=== PATIENT | female | born 1950 | race African-American/Black ===

== ENCOUNTER 2020-08-25 00:42 | Emergency (ER) | payer OTHER, MEDICAID ==
[2020-08-25] MEDS ORDERED: Lorazepam 2 MG/ML VIAL ONE ×3 (00:55→01:21)
[2020-08-25] MEDS ORDERED: [UNRECOGNIZED DRUG - OTHER] ONE (01:16)
[2020-08-25] MEDS ORDERED: Propofol 1,000 MG/100 ML VIAL IV ONE ×2 (01:25→06:30)
[2020-08-25 01:50] LABS: #Eosinphils 0.1 10x3/uL (0.0-0.5); #Monocytes 0.3 10x3/uL (0.0-1.1); #Neutrophils 5.5 10x3/uL (1.5-8.4); %Basophils 0.1 % (0.0-2.0); %Eosinophils 1.7 % (0.0-6.0); %Lymphocytes 16.9 % (18.0-47.0); %Monocytes 3.8 % (0.0-10.0); %Neutrophils 77.2 % (40.0-75.0); Hemoglobin 12.9 g/dL (12.0-15.5); Mean Corpuscular Hemoglobin 27.3 pg (27.0-33.0); Mean Corpuscular Volume 87.9 fl (81.6-98.3); Mean Platelet Volume 12.2 fl (7.4-10.4); Platelet Count 132 10x3/uL (150-450); Red Blood Cell (RBC) Count 4.73 10x6/uL (3.90-5.03); White Blood Cell (WBC) Count 7.2 10x3/uL (3.5-10.5)
[2020-08-25 01:52] LABS: SARS-CoV-2 NAA Rapid Test Not Detected (NotDetected)
[2020-08-25 02:14] LABS: ALT (SGPT) 34 U/L (8-55); AST (SGOT) 34 U/L (5-34); Alkaline Phosphatase 158 U/L (40-110); Anion Gap 16 mmol/L (10-20); BUN (Urea Nitrogen) 28 mg/dL (9.8-20.1); Bilirubin, Total 0.3 mg/dL (0.2-1.2); Calc. Creatinine Clearance 0 mL/min (70-130); Calcium 9.6 mg/dL (7.8-10.44); Carbon Dioxide 25 mmol/L (23-31); Chloride 106 mmol/L (98-107); Globulin 4.4 g/dL (2.4-3.5); Glucose 90 mg/dL (80-115); Potassium 4.3 mmol/L (3.5-5.1); Protein, Total 8.4 g/dL (5.8-8.1); Sodium 143 mmol/L (136-145)
[2020-08-25] MEDS ORDERED: cefTRIAXone\\ROCEPHIN 2 GM VIAL ONE (02:59)
[2020-08-25 03:08] LABS: Base Excess (BEa) -1.8 mEq/L (-2.0 to +3.0); CO2 Tension 39.4 mmHg (35.0-45.0); Calcium, Ionized (arterial) 1.14 mmol/L (1.12-1.30); Carboxyhemoglobin (COHb) 0.4 gm% (0.0-3.0); Hemoglobin (Hb) 12.8 g/dL (12.0-16.0); O2 Tension (PaO2), arterial 116.7 mmHg (> 80.0); Potassium - ABG Lab 3.5 mmol/L (3.70-5.30); Puncture Site LRA; pH, Arterial 7.38 (7.35-7.45)
[2020-08-25] MEDS ORDERED: Fentanyl 100 MCG/2 ML VIAL ONE (03:55)
[2020-08-25] MEDS ORDERED: fentaNYL Citrate/PF 50 MCG/ML (20ML VIAL) ONE ×2 (04:21→04:30)
[2020-08-25] MEDS ORDERED: Rocuronium Bromide 10 MG/ML (10ML VIAL) ONE (08:00)
== END 2020-08-25 08:01 | disposition short-term general hospital (02) ==
LOC: CSHERS 00:42
DX: J96.91 Respiratory failure, unspecified with hypoxia (principal); G40.901 Epilepsy, unspecified, not intractable, with status epilepticus; E78.5 Hyperlipidemia, unspecified; F03.90 Unspecified dementia, unspecified severity, without behavioral disturbance, psychotic disturbance, mood disturbance, and anxiety; G47.00 Insomnia, unspecified; I10 Essential (primary) hypertension; K21.9 Gastro-esophageal reflux disease without esophagitis; Z20.822 Contact with and (suspected) exposure to COVID-19; Z86.73 Personal history of transient ischemic attack (TIA), and cerebral infarction without residual deficits; Z79.82 Long term (current) use of aspirin; Z79.899 Other long term (current) drug therapy
CPT/HCPCS: 31500; 36600; 36680; 51702; 70450; 71045; 80053; 82805; 83605; 84443; 84484; 85025; 87040; 87086; 87149; 93005; 94002; 94760; 96365; 96366; 96367; 96375; 96376; 99292; J0696; J1953; J2060; J2704; J3010; U0002

== ENCOUNTER 2020-09-30 16:24 | Inpatient (IN) | payer OTHER, MEDICAID ==
[2020-09-30 17:24] LABS: #Eosinphils 0.2 10x3/uL (0.0-0.5); #Monocytes 0.4 10x3/uL (0.0-1.1); %Basophils 0.1 % (0.0-2.0); %Eosinophils 2.2 % (0.0-6.0); %Lymphocytes 27.1 % (18.0-47.0); %Monocytes 5.1 % (0.0-10.0); %Neutrophils 65.2 % (40.0-75.0); Hemoglobin 9.4 g/dL (12.0-15.5); Mean Corpuscular HGB CONC 30.5 g/dL (32.0-36.0); Mean Corpuscular Hemoglobin 28.2 pg (27.0-33.0); Mean Corpuscular Volume 92.5 fl (81.6-98.3); Mean Platelet Volume 12.5 fl (7.4-10.4); Platelet Count 173 10x3/uL (150-450); RBC Distribution Width 15.6 % (11.5-14.5); Red Blood Cell (RBC) Count 3.33 10x6/uL (3.90-5.03); White Blood Cell (WBC) Count 7.7 10x3/uL (3.5-10.5)
[2020-09-30 17:38] LABS: ALT (SGPT) 16 U/L (8-55); AST (SGOT) 17 U/L (5-34); Albumin 3.5 g/dL (3.4-4.8); Alkaline Phosphatase 166 U/L (40-110); Anion Gap 16 mmol/L (10-20); BUN (Urea Nitrogen) 30 mg/dL (9.8-20.1); Bilirubin, Total 0.2 mg/dL (0.2-1.2); Calc. Creatinine Clearance 0 mL/min (70-130); Calcium 9.3 mg/dL (7.8-10.44); Carbon Dioxide 26 mmol/L (23-31); Chloride 104 mmol/L (98-107); Globulin 3.4 g/dL (2.4-3.5); Glucose 98 mg/dL (80-115); Potassium 4.5 mmol/L (3.5-5.1); Protein, Total 6.9 g/dL (5.8-8.1); Sodium 141 mmol/L (136-145)
[2020-09-30 18:02] LABS: PTT 23.9 sec (22.0-33.0); Prothrombin Time 11.3 sec (9.5-12.1)
[2020-09-30] MEDS ORDERED: Acetaminophen 325 MG TAB PO PRN (19:12)
[2020-09-30] MEDS ORDERED: Ondansetron PF 4 MG/2 ML Vial IVP PRN (19:12)
[2020-09-30] MEDS ORDERED: Sodium Chloride 0.9% 500 ML IV SCH (19:15)
[2020-09-30 19:59] LABS: Iron 27 ug/dL (50-170); Iron Binding Capacity, Total 321 mcg/dL (265-497)
[2020-09-30] MEDS ORDERED: Pantoprazole 40 MG VIAL ONE (21:06)
[2020-09-30 21:35] LABS: SARS-CoV-2 NAA Rapid Test Not Detected (NotDetected)
[2020-09-30 22:07] LABS: #Eosinphils 0.2 10x3/uL (0.0-0.5); #Monocytes 0.6 10x3/uL (0.0-1.1); #Neutrophils 5.8 10x3/uL (1.5-8.4); %Basophils 0.3 % (0.0-2.0); %Eosinophils 2.2 % (0.0-6.0); %Lymphocytes 24.7 % (18.0-47.0); %Monocytes 6.5 % (0.0-10.0); %Neutrophils 65.4 % (40.0-75.0); Hemoglobin 9.9 g/dL (12.0-15.5); Mean Corpuscular HGB CONC 31.9 g/dL (32.0-36.0); Mean Corpuscular Hemoglobin 28.3 pg (27.0-33.0); Mean Corpuscular Volume 88.6 fl (81.6-98.3); Mean Platelet Volume 13.5 fl (7.4-10.4); Platelet Count 148 10x3/uL (150-450); RBC Distribution Width 15.6 % (11.5-14.5); White Blood Cell (WBC) Count 8.9 10x3/uL (3.5-10.5)
[2020-09-30 22:56] VITALS: BMI 28.6
[2020-09-30] MEDS ORDERED: Scopolamine 1.5 mg/72 hour Patch TD SCH (23:59)
[2020-10-01] MEDS: Dextrose 5 %-0.45 % NaCl 1,000 ML IV SCH ×2 (00:18→12:13)
[2020-10-01] MEDS: levETIRAcetam 500 MG in Sodium Chloride 0.9% 100 ML IVPB SCH ×3 (00:18→21:17)
[2020-10-01 05:01] LABS: #Eosinphils 0.1 10x3/uL (0.0-0.5); #Monocytes 0.6 10x3/uL (0.0-1.1); #Neutrophils 6.7 10x3/uL (1.5-8.4); %Basophils 0.3 % (0.0-2.0); %Eosinophils 1.4 % (0.0-6.0); %Lymphocytes 22.1 % (18.0-47.0); %Monocytes 6.2 % (0.0-10.0); %Neutrophils 69.6 % (40.0-75.0); Hemoglobin 9.2 g/dL (12.0-15.5); Mean Corpuscular HGB CONC 31.4 g/dL (32.0-36.0); Mean Corpuscular Hemoglobin 28.6 pg (27.0-33.0); Mean Platelet Volume 12.8 fl (7.4-10.4); Platelet Count 184 10x3/uL (150-450); RBC Distribution Width 15.6 % (11.5-14.5); Red Blood Cell (RBC) Count 3.22 10x6/uL (3.90-5.03); White Blood Cell (WBC) Count 9.6 10x3/uL (3.5-10.5)
[2020-10-01 05:03] LABS: Anion Gap 13 mmol/L (10-20); BUN (Urea Nitrogen) 27 mg/dL (9.8-20.1); Calc. Creatinine Clearance 69 mL/min (70-130); Calcium 9.3 mg/dL (7.8-10.44); Carbon Dioxide 27 mmol/L (23-31); Chloride 106 mmol/L (98-107); Glucose 105 mg/dL (80-115); Potassium 3.9 mmol/L (3.5-5.1); Sodium 142 mmol/L (136-145)
[2020-10-01] MEDS: Pantoprazole 80 MG in Sodium Chloride 0.9% 100 ML IVPB SCH ×2 (09:28→18:48)
[2020-10-01 10:13] LABS: #Eosinphils 0.2 10x3/uL (0.0-0.5); #Monocytes 0.5 10x3/uL (0.0-1.1); #Neutrophils 5.7 10x3/uL (1.5-8.4); %Basophils 0.4 % (0.0-2.0); %Eosinophils 1.9 % (0.0-6.0); %Lymphocytes 19.5 % (18.0-47.0); %Monocytes 5.8 % (0.0-10.0); %Neutrophils 72.1 % (40.0-75.0); Hemoglobin 8.7 g/dL (12.0-15.5); Mean Corpuscular HGB CONC 30.5 g/dL (32.0-36.0); Mean Corpuscular Hemoglobin 28.3 pg (27.0-33.0); Mean Corpuscular Volume 92.8 fl (81.6-98.3); Mean Platelet Volume 12.4 fl (7.4-10.4); Platelet Count 155 10x3/uL (150-450); RBC Distribution Width 15.7 % (11.5-14.5); Red Blood Cell (RBC) Count 3.07 10x6/uL (3.90-5.03); White Blood Cell (WBC) Count 7.9 10x3/uL (3.5-10.5)
[2020-10-01 21:53] LABS: #Eosinphils 0.2 10x3/uL (0.0-0.5); #Monocytes 0.5 10x3/uL (0.0-1.1); #Neutrophils 6.3 10x3/uL (1.5-8.4); %Basophils 0.2 % (0.0-2.0); %Eosinophils 2.3 % (0.0-6.0); %Lymphocytes 20.5 % (18.0-47.0); %Monocytes 5.2 % (0.0-10.0); %Neutrophils 71.6 % (40.0-75.0); Hemoglobin 8.3 g/dL (12.0-15.5); Mean Corpuscular HGB CONC 31.1 g/dL (32.0-36.0); Mean Corpuscular Hemoglobin 28.7 pg (27.0-33.0); Mean Corpuscular Volume 92.4 fl (81.6-98.3); Mean Platelet Volume 12.3 fl (7.4-10.4); Platelet Count 166 10x3/uL (150-450); RBC Distribution Width 15.4 % (11.5-14.5); Red Blood Cell (RBC) Count 2.89 10x6/uL (3.90-5.03); White Blood Cell (WBC) Count 8.8 10x3/uL (3.5-10.5)
[2020-10-01] MEDS ORDERED: Morphine 4 MG/ML VIAL SLOW IVP SCH (23:59)
[2020-10-02] MEDS ORDERED: Morphine 2 MG/ML VIAL SLOW IVP SCH (00:30)
[2020-10-02] MEDS: Dextrose 5 %-0.45 % NaCl 1,000 ML IV SCH ×3 (00:46→20:54)
[2020-10-02] MEDS ORDERED: Morphine 4 MG/ML VIAL SLOW IVP PRN (05:05)
[2020-10-02 05:15] LABS: #Eosinphils 0.4 10x3/uL (0.0-0.5); #Monocytes 0.5 10x3/uL (0.0-1.1); #Neutrophils 5.7 10x3/uL (1.5-8.4); %Basophils 0.2 % (0.0-2.0); %Eosinophils 4.3 % (0.0-6.0); %Lymphocytes 20.9 % (18.0-47.0); %Monocytes 5.9 % (0.0-10.0); %Neutrophils 68.5 % (40.0-75.0); Hemoglobin 8.4 g/dL (12.0-15.5); Mean Corpuscular HGB CONC 30.7 g/dL (32.0-36.0); Mean Corpuscular Hemoglobin 28.4 pg (27.0-33.0); Mean Corpuscular Volume 92.6 fl (81.6-98.3); Platelet Count 156 10x3/uL (150-450); RBC Distribution Width 15.4 % (11.5-14.5); Red Blood Cell (RBC) Count 2.96 10x6/uL (3.90-5.03); White Blood Cell (WBC) Count 8.3 10x3/uL (3.5-10.5)
[2020-10-02 05:16] LABS: Anion Gap 13 mmol/L (10-20); BUN (Urea Nitrogen) 17 mg/dL (9.8-20.1); Calc. Creatinine Clearance 77 mL/min (70-130); Calcium 9.1 mg/dL (7.8-10.44); Carbon Dioxide 23 mmol/L (23-31); Chloride 110 mmol/L (98-107); Glucose 105 mg/dL (80-115); Potassium 3.7 mmol/L (3.5-5.1); Sodium 142 mmol/L (136-145)
[2020-10-02] MEDS: Morphine 2 MG/ML VIAL SLOW IVP PRN ×3 (05:16→23:41)
[2020-10-02] MEDS: levETIRAcetam 500 MG in Sodium Chloride 0.9% 100 ML IVPB SCH ×2 (08:39→20:59)
[2020-10-02] MEDS ORDERED: PROPOFOL 20 ML ONE (16:50)
[2020-10-03 07:46] VITALS: TEMP 99.1
[2020-10-03] MEDS: levETIRAcetam 500 MG in Sodium Chloride 0.9% 100 ML IVPB SCH (07:58)
[2020-10-03] MEDS ORDERED: Pantoprazole 40 MG GRANULES PACKET PER TUBE SCH ×2 (09:00)
[2020-10-03 11:45] VITALS: BP 109/66
== END 2020-10-03 15:17 | DRG 378 ==
LOC: CSHERS 16:24 → CSHIMCU 19:12 → CSHTELE 10-01 19:51
PROVIDERS: ADMIT Student in an Organized Health Care Education/Training Program; ATTEND Family Medicine
PROC: 02HV33Z Insertion of Infusion Device into Superior Vena Cava, Percutaneous Approach (ICD-10-PCS; 2020-09-30)
PROC: 0DP68UZ Removal of Feeding Device from Stomach, Via Natural or Artificial Opening Endoscopic (ICD-10-PCS; principal; 2020-10-02)
PROC: 0DH63UZ Insertion of Feeding Device into Stomach, Percutaneous Approach (ICD-10-PCS; 2020-10-02)
DX: K92.2 Gastrointestinal hemorrhage, unspecified (principal); D62 Acute posthemorrhagic anemia; K94.23 Gastrostomy malfunction; K44.9 Diaphragmatic hernia without obstruction or gangrene; Z20.822 Contact with and (suspected) exposure to COVID-19; K20.90 Esophagitis, unspecified without bleeding; Z86.73 Personal history of transient ischemic attack (TIA), and cerebral infarction without residual deficits; M24.50 Contracture, unspecified joint; E78.5 Hyperlipidemia, unspecified; G40.909 Epilepsy, unspecified, not intractable, without status epilepticus; I12.9 Hypertensive chronic kidney disease with stage 1 through stage 4 chronic kidney disease, or unspecified chronic kidney disease; N18.2 Chronic kidney disease, stage 2 (mild); I48.0 Paroxysmal atrial fibrillation; K21.9 Gastro-esophageal reflux disease without esophagitis; R39.2 Extrarenal uremia; Z74.01 Bed confinement status; Z79.01 Long term (current) use of anticoagulants; Z79.82 Long term (current) use of aspirin; Z79.899 Other long term (current) drug therapy
CPT/HCPCS: 0240U; 36415; 36416; 71045; 80048; 80053; 82274; 82728; 83540; 83550; 85025; 85610; 85730; 86850; 86900; 86901; 93005; 93010; 94760; C9113; J1953; J2270; J2704; J3490; J7042

== ENCOUNTER 2021-03-24 11:30 | Emergency (ER) | payer OTHER, MEDICAID | END 2021-03-24 14:19 | disposition home or self-care (01) | LOC: CSHERS 11:30 | DX: I10 Essential (primary) hypertension (principal); E78.5 Hyperlipidemia, unspecified; K21.9 Gastro-esophageal reflux disease without esophagitis; F03.90 Unspecified dementia, unspecified severity, without behavioral disturbance, psychotic disturbance, mood disturbance, and anxiety; G47.00 Insomnia, unspecified; Z86.73 Personal history of transient ischemic attack (TIA), and cerebral infarction without residual deficits | CPT/HCPCS: 74018 ==

== ENCOUNTER 2021-03-31 08:56 | Emergency (ER) | payer OTHER | END 2021-03-31 13:15 | disposition home or self-care (01) | LOC: CSHERS 08:56 | DX: K94.23 Gastrostomy malfunction (principal); E78.5 Hyperlipidemia, unspecified; F03.90 Unspecified dementia, unspecified severity, without behavioral disturbance, psychotic disturbance, mood disturbance, and anxiety; G47.00 Insomnia, unspecified; I10 Essential (primary) hypertension; K21.9 Gastro-esophageal reflux disease without esophagitis; Z86.73 Personal history of transient ischemic attack (TIA), and cerebral infarction without residual deficits | CPT/HCPCS: 43762 ==

== ENCOUNTER 2021-04-22 18:21 | Emergency (ER) | payer OTHER | END 2021-04-22 22:12 | LOC: CSHERS 18:21 | DX: S72.341A Displaced spiral fracture of shaft of right femur, initial encounter for closed fracture (principal); I10 Essential (primary) hypertension; Z86.73 Personal history of transient ischemic attack (TIA), and cerebral infarction without residual deficits; K21.9 Gastro-esophageal reflux disease without esophagitis; E78.5 Hyperlipidemia, unspecified ==

== ENCOUNTER 2021-06-09 03:52 | Emergency (ER) | payer OTHER | END 2021-06-09 04:08 | LOC: CSHERS 03:52 | DX: K94.23 Gastrostomy malfunction (principal); I10 Essential (primary) hypertension; Z86.73 Personal history of transient ischemic attack (TIA), and cerebral infarction without residual deficits; E78.5 Hyperlipidemia, unspecified; K21.9 Gastro-esophageal reflux disease without esophagitis | CPT/HCPCS: 43762; 74018 ==

== ENCOUNTER 2021-11-07 08:53 | Emergency (ER) | payer OTHER ==
[2021-11-07] MEDS ORDERED: Iopamidol 300 61% 100 ML VIAL FS ONE (10:37)
[2021-11-07 10:39] LABS: #Eosinphils 0.3 10x3/uL (0.0-0.5); #Monocytes 0.5 10x3/uL (0.0-1.1); #Neutrophils 6.9 10x3/uL (1.5-8.4); %Basophils 0.3 % (0.0-2.0); %Eosinophils 2.4 % (0.0-6.0); %Lymphocytes 25.1 % (18.0-47.0); %Monocytes 5.1 % (0.0-10.0); %Neutrophils 66.7 % (40.0-75.0); Hemoglobin 12.8 g/dL (12.0-15.5); Mean Corpuscular HGB CONC 32.3 g/dL (32.0-36.0); Mean Corpuscular Hemoglobin 27.9 pg (27.0-33.0); Mean Corpuscular Volume 86.3 fl (81.6-98.3); Mean Platelet Volume 11.7 fl (7.4-10.4); Platelet Count 156 10x3/uL (150-450); RBC Distribution Width 16.2 % (11.5-14.5); Red Blood Cell (RBC) Count 4.59 10x6/uL (3.90-5.03); White Blood Cell (WBC) Count 10.3 10x3/uL (3.5-10.5)
[2021-11-07 10:55] LABS: ALT (SGPT) 20 U/L (8-55); AST (SGOT) 18 U/L (5-34); Albumin 3.7 g/dL (3.4-4.8); Alkaline Phosphatase 146 U/L (40-110); Anion Gap 14 mmol/L (10-20); BUN (Urea Nitrogen) 30 mg/dL (9.8-20.1); Bilirubin, Total 0.4 mg/dL (0.2-1.2); Calc. Creatinine Clearance 0 mL/min (70-130); Calcium 9.7 mg/dL (7.8-10.44); Carbon Dioxide 30 mmol/L (23-31); Chloride 99 mmol/L (98-107); Globulin 3.7 g/dL (2.4-3.5); Glucose 103 mg/dL (80-115); Lipase 29 U/L (8-78); Magnesium 1.9 mg/dL (1.6-2.6); Potassium 3.9 mmol/L (3.5-5.1); Protein, Total 7.4 g/dL (5.8-8.1); Sodium 139 mmol/L (136-145)
[2021-11-07 11:20] LABS: Bilirubin Neg (Negative); Blood, Urine Negative (Negative); Clarity Clear (Clear); Glucose, Urine (Dipstick) Normal (Negative); Ketone, Urine Negative (Negative); Leukocyte Negative (Negative); Nitrite Negative (Negative); Protein, Urine (Dipstick) 15 mg/dl (Neg-Trace); Specific Gravity, Urine 1.015 (1.002-1.036)
[2021-11-07] MEDS ORDERED: Ondansetron PF 4 MG/2 ML Vial ONE (12:09)
== END 2021-11-07 14:40 | disposition home or self-care (01) ==
LOC: CSHERS 08:53
DX: K52.9 Noninfective gastroenteritis and colitis, unspecified (principal); I10 Essential (primary) hypertension; E78.5 Hyperlipidemia, unspecified; K21.9 Gastro-esophageal reflux disease without esophagitis; G47.00 Insomnia, unspecified; Z86.73 Personal history of transient ischemic attack (TIA), and cerebral infarction without residual deficits
CPT/HCPCS: 36415; 51701; 71045; 74177; 80053; 81003; 83690; 83735; 84484; 85025; 87086; 93005; 96361; 96374; J2405; Q9967

== ENCOUNTER 2021-12-24 20:34 | Emergency (ER) | payer OTHER ==
[2021-12-24 21:08] LABS: #Eosinphils 0.1 10x3/uL (0.0-0.5); #Monocytes 0.4 10x3/uL (0.0-1.1); #Neutrophils 6.8 10x3/uL (1.5-8.4); %Basophils 0.2 % (0.0-2.0); %Eosinophils 0.7 % (0.0-6.0); %Lymphocytes 15.8 % (18.0-47.0); %Monocytes 4.1 % (0.0-10.0); %Neutrophils 79.1 % (40.0-75.0); Hemoglobin 13.7 g/dL (12.0-15.5); Mean Corpuscular HGB CONC 32.5 g/dL (32.0-36.0); Mean Corpuscular Hemoglobin 28.1 pg (27.0-33.0); Mean Corpuscular Volume 86.7 fl (81.6-98.3); Mean Platelet Volume 11.8 fl (7.4-10.4); Platelet Count 143 10x3/uL (150-450); RBC Distribution Width 14.4 % (11.5-14.5); Red Blood Cell (RBC) Count 4.87 10x6/uL (3.90-5.03); White Blood Cell (WBC) Count 8.6 10x3/uL (3.5-10.5)
[2021-12-24 21:26] LABS: ALT (SGPT) 24 U/L (8-55); AST (SGOT) 22 U/L (5-34); Albumin 4.1 g/dL (3.4-4.8); Alkaline Phosphatase 159 U/L (40-110); Anion Gap 15 mmol/L (10-20); BUN (Urea Nitrogen) 32 mg/dL (9.8-20.1); Bilirubin, Total 0.4 mg/dL (0.2-1.2); Calc. Creatinine Clearance 0 mL/min (70-130); Calcium 10.5 mg/dL (7.8-10.44); Carbon Dioxide 28 mmol/L (23-31); Chloride 103 mmol/L (98-107); Estimated GFR 86; Glucose 111 mg/dL (80-115); Potassium 3.8 mmol/L (3.5-5.1); Protein, Total 8.1 g/dL (5.8-8.1); Sodium 142 mmol/L (136-145)
== END 2021-12-24 23:09 | disposition home or self-care (01) ==
LOC: CSHERS 20:34
DX: R11.10 Vomiting, unspecified (principal); I10 Essential (primary) hypertension; E78.5 Hyperlipidemia, unspecified; K21.9 Gastro-esophageal reflux disease without esophagitis; Z79.899 Other long term (current) drug therapy
CPT/HCPCS: 36415; 80053; 82274; 85025; 99284

== ENCOUNTER 2022-05-14 20:19 | Emergency (ER) | payer OTHER | END 2022-05-14 21:13 | LOC: CSHERS 20:19 | DX: K94.23 Gastrostomy malfunction (principal); I10 Essential (primary) hypertension; E78.5 Hyperlipidemia, unspecified; K21.9 Gastro-esophageal reflux disease without esophagitis | CPT/HCPCS: 43762; 74018 ==

== ENCOUNTER 2022-05-16 01:56 | Observation (INO) | payer OTHER ==
[2022-05-16 02:39] LABS: #Eosinphils 0.1 10x3/uL (0.0-0.5); #Monocytes 0.3 10x3/uL (0.0-1.1); #Neutrophils 6.5 10x3/uL (1.5-8.4); %Basophils 0.4 % (0.0-2.0); %Eosinophils 0.9 % (0.0-6.0); %Lymphocytes 13.7 % (18.0-47.0); %Monocytes 3.6 % (0.0-10.0); %Neutrophils 81.1 % (40.0-75.0); Hemoglobin 12.8 g/dL (12.0-15.5); Mean Corpuscular Hemoglobin 28.3 pg (27.0-33.0); Mean Corpuscular Volume 88.3 fl (81.6-98.3); Mean Platelet Volume 12.1 fl (7.4-10.4); Platelet Count 141 10x3/uL (150-450); RBC Distribution Width 15.1 % (11.5-14.5); Red Blood Cell (RBC) Count 4.53 10x6/uL (3.90-5.03)
[2022-05-16 02:57] LABS: ALT (SGPT) 13 U/L (8-55); AST (SGOT) 20 U/L (5-34); Albumin 3.9 g/dL (3.4-4.8); Alkaline Phosphatase 154 U/L (40-110); Anion Gap 15 mmol/L (10-20); BUN (Urea Nitrogen) 24 mg/dL (9.8-20.1); Bilirubin, Total 0.4 mg/dL (0.2-1.2); Calc. Creatinine Clearance 0 mL/min (70-130); Calcium 9.8 mg/dL (7.8-10.44); Carbon Dioxide 24 mmol/L (23-31); Chloride 108 mmol/L (98-107); Estimated GFR 83; Globulin 3.9 g/dL (2.4-3.5); Glucose 92 mg/dL (80-115); Lipase 19 U/L (8-78); Magnesium 1.9 mg/dL (1.6-2.6); Potassium 3.6 mmol/L (3.5-5.1); Protein, Total 7.8 g/dL (5.8-8.1); Sodium 143 mmol/L (136-145)
[2022-05-16] MEDS ORDERED: Lorazepam 2 MG/ML VIAL ONE (04:12)
[2022-05-16] MEDS ORDERED: levETIRAcetam 2,000 MG in Sodium Chloride 0.9% 100 ML IVPB SCH (04:30)
[2022-05-16 05:37] LABS: SARS-CoV-2 NAA Rapid Test DETECTED (NotDetected)
[2022-05-16] MEDS ORDERED: Lorazepam 2 MG/ML VIAL SLOW IVP PRN ×2 (06:32→08:12)
[2022-05-16] MEDS ORDERED: Dextrose 50% Abboject 50 ML SYRINGE SLOW IVP PRN (06:41)
[2022-05-16] MEDS ORDERED: Dextrose 5% in Water 1,000 ML IV PRN (06:41)
[2022-05-16] MEDS ORDERED: HumaLOG 300 UNITS/3 ML VIAL SC PRN (06:41)
[2022-05-16] MEDS ORDERED: Ondansetron ODT 4 MG TAB PER TUBE PRN (07:04)
[2022-05-16 07:48] VITALS: BMI 26.5
[2022-05-16] MEDS ORDERED: CHOLECALCIFEROL 250 MCG PER TUBE SCH (09:00)
[2022-05-16] MEDS: Enoxaparin Sodium 40 MG/0.4 ML SYRINGE SC SCH (09:29)
[2022-05-16] MEDS: Dexamethasone 4 mg/ml Vial SLOW IVP SCH (09:29)
[2022-05-16] MEDS: Multivitamin W/ Minerals 1 TAB PER TUBE SCH (09:29)
[2022-05-16] MEDS: Aspirin Chewable 81 MG TAB PER TUBE SCH (09:29)
[2022-05-16] MEDS: Sertraline 100 MG TAB PER TUBE SCH (09:29)
[2022-05-16] MEDS: Cholecalciferol 1,000 UNITS (25 MCG) TAB PER TUBE SCH (09:30)
[2022-05-16] MEDS: Lansoprazole 3 MG/ML ORAL SUSPENSION PER TUBE SCH (09:30)
[2022-05-16] MEDS: Ascorbic Acid 500 mg Chewable Tablet PER TUBE SCH (09:30)
[2022-05-16] MEDS: Saccharomyces boulardii 250 MG CAP PER TUBE SCH ×3 (09:30→22:31)
[2022-05-16] MEDS: Zinc Sulfate 220 MG CAP PER TUBE SCH (09:30)
[2022-05-16] MEDS: levETIRAcetam 500 MG TAB PER TUBE SCH ×2 (09:30→22:31)
[2022-05-16] MEDS: Polyethylene Glycol 3350 17 GM Packet PER TUBE SCH (10:07)
[2022-05-16] MEDS: Ipratropium Bromide 2.5 ml Neb NEB SCH ×4 (15:00→20:45)
[2022-05-16] MEDS: Melatonin 3 MG TAB PER TUBE SCH (22:32)
[2022-05-17 05:58] LABS: Anion Gap 12 mmol/L (10-20); BUN (Urea Nitrogen) 26 mg/dL (9.8-20.1); CRP (Inflammatory) 3.27 mg/dL (= or < 0.5); Calc. Creatinine Clearance 82 mL/min (70-130); Calcium 9.6 mg/dL (7.8-10.44); Carbon Dioxide 27 mmol/L (23-31); Chloride 111 mmol/L (98-107); Estimated GFR 91; Glucose 78 mg/dL (80-115); Potassium 3.7 mmol/L (3.5-5.1); Sodium 146 mmol/L (136-145)
[2022-05-17 06:18] LABS: #Eosinphils 0.1 10x3/uL (0.0-0.5); #Monocytes 0.5 10x3/uL (0.0-1.1); #Neutrophils 3.8 10x3/uL (1.5-8.4); %Basophils 0.5 % (0.0-2.0); %Eosinophils 1.8 % (0.0-6.0); %Lymphocytes 26.2 % (18.0-47.0); %Monocytes 7.6 % (0.0-10.0); %Neutrophils 63.7 % (40.0-75.0); Hemoglobin 12.3 g/dL (12.0-15.5); Mean Corpuscular HGB CONC 31.5 g/dL (32.0-36.0); Mean Corpuscular Hemoglobin 28.3 pg (27.0-33.0); Mean Corpuscular Volume 89.9 fl (81.6-98.3); Mean Platelet Volume 12.4 fl (7.4-10.4); Platelet Count 126 10x3/uL (150-450); RBC Distribution Width 15.2 % (11.5-14.5); Red Blood Cell (RBC) Count 4.34 10x6/uL (3.90-5.03)
[2022-05-17] MEDS: Ipratropium Bromide 2.5 ml Neb NEB SCH ×3 (08:36→19:49)
[2022-05-17] MEDS: Polyethylene Glycol 3350 17 GM Packet PER TUBE SCH (08:51)
[2022-05-17] MEDS: Dexamethasone 4 mg/ml Vial SLOW IVP SCH (08:53)
[2022-05-17] MEDS: Aspirin Chewable 81 MG TAB PER TUBE SCH (08:54)
[2022-05-17] MEDS: Sertraline 100 MG TAB PER TUBE SCH (08:54)
[2022-05-17] MEDS: Enoxaparin Sodium 40 MG/0.4 ML SYRINGE SC SCH (08:54)
[2022-05-17] MEDS: Saccharomyces boulardii 250 MG CAP PER TUBE SCH ×3 (08:55→22:29)
[2022-05-17] MEDS: Ascorbic Acid 500 mg Chewable Tablet PER TUBE SCH (08:55)
[2022-05-17] MEDS: Multivitamin W/ Minerals 1 TAB PER TUBE SCH (08:55)
[2022-05-17] MEDS: levETIRAcetam 500 MG TAB PER TUBE SCH ×2 (08:55→22:29)
[2022-05-17] MEDS: Cholecalciferol 1,000 UNITS (25 MCG) TAB PER TUBE SCH (08:56)
[2022-05-17] MEDS: Lansoprazole 3 MG/ML ORAL SUSPENSION PER TUBE SCH (09:00)
[2022-05-17] MEDS: Zinc Sulfate 220 MG CAP PER TUBE SCH (11:21)
[2022-05-17] MEDS: Melatonin 3 MG TAB PER TUBE SCH (22:29)
[2022-05-18] MEDS: Ipratropium Bromide 2.5 ml Neb NEB SCH ×3 (07:30→11:44)
[2022-05-18] MEDS: Dexamethasone 4 mg/ml Vial SLOW IVP SCH (10:52)
[2022-05-18] MEDS: levETIRAcetam 500 MG TAB PER TUBE SCH (10:52)
[2022-05-18] MEDS: Zinc Sulfate 220 MG CAP PER TUBE SCH (10:52)
[2022-05-18] MEDS: Saccharomyces boulardii 250 MG CAP PER TUBE SCH ×2 (10:53→15:48)
[2022-05-18] MEDS: Sertraline 100 MG TAB PER TUBE SCH (10:53)
[2022-05-18] MEDS: Ascorbic Acid 500 mg Chewable Tablet PER TUBE SCH (10:53)
[2022-05-18] MEDS: Aspirin Chewable 81 MG TAB PER TUBE SCH (10:53)
[2022-05-18] MEDS: Cholecalciferol 1,000 UNITS (25 MCG) TAB PER TUBE SCH (10:54)
[2022-05-18] MEDS: Multivitamin W/ Minerals 1 TAB PER TUBE SCH (10:54)
[2022-05-18] MEDS: Polyethylene Glycol 3350 17 GM Packet PER TUBE SCH (10:54)
[2022-05-18] MEDS: Enoxaparin Sodium 40 MG/0.4 ML SYRINGE SC SCH (10:54)
[2022-05-18] MEDS: Lansoprazole 3 MG/ML ORAL SUSPENSION PER TUBE SCH (11:16)
[2022-05-18 12:30] VITALS: BP 133/73; TEMP 98
[2022-05-18] MEDS ORDERED: Ipratropium Oral Inhaler INH SCH (15:00)
== END 2022-05-18 04:30 ==
LOC: CSHERS 01:56 → CSHTELE 06:31 → INTOOBSV 06:31
PROVIDERS: ADMIT Family Medicine; ATTEND Internal Medicine
DX: U07.1 COVID-19 (principal); J96.01 Acute respiratory failure with hypoxia; M24.50 Contracture, unspecified joint; G93.41 Metabolic encephalopathy; G40.909 Epilepsy, unspecified, not intractable, without status epilepticus; I10 Essential (primary) hypertension; Z93.1 Gastrostomy status; E78.5 Hyperlipidemia, unspecified; Z79.82 Long term (current) use of aspirin; Z79.899 Other long term (current) drug therapy
CPT/HCPCS: 70490; 71045; 74176; 80048; 80053; 82962 ×3; 83605; 83690; 83735; 85025 ×2; 86140; 93005; 94640 ×2; 94760 ×3; 96365; 96375; 99285; J1953; U0002; 36415; 36416; 96372; 96376; G0378; J1100; J1650; J2060; J3490

== ENCOUNTER 2022-08-19 14:00 | Observation (INO) | payer OTHER, MEDICAID ==
[2022-08-19 14:57] LABS: #Eosinphils 0.2 10x3/uL (0.0-0.5); #Monocytes 0.3 10x3/uL (0.0-1.1); #Neutrophils 7.6 10x3/uL (1.5-8.4); %Basophils 0.3 % (0.0-2.0); %Eosinophils 2.1 % (0.0-6.0); %Lymphocytes 9.5 % (18.0-47.0); %Monocytes 3.5 % (0.0-10.0); %Neutrophils 84.3 % (40.0-75.0); Hemoglobin 12.6 g/dL (12.0-15.5); Mean Corpuscular HGB CONC 30.4 g/dL (32.0-36.0); Mean Corpuscular Hemoglobin 28.6 pg (27.0-33.0); Mean Corpuscular Volume 93.9 fl (81.6-98.3); Mean Platelet Volume 12.2 fl (7.4-10.4); Platelet Count 126 10x3/uL (150-450); Red Blood Cell (RBC) Count 4.41 10x6/uL (3.90-5.03)
[2022-08-19 15:23] LABS: ALT (SGPT) 16 U/L (8-55); AST (SGOT) 24 U/L (5-34); Albumin 3.6 g/dL (3.4-4.8); Alkaline Phosphatase 126 U/L (40-110); Anion Gap 15 mmol/L (10-20); BUN (Urea Nitrogen) 26 mg/dL (9.8-20.1); Bilirubin, Total 0.2 mg/dL (0.2-1.2); Calc. Creatinine Clearance 0 mL/min (70-130); Calcium 9.4 mg/dL (7.8-10.44); Carbon Dioxide 26 mmol/L (23-31); Chloride 107 mmol/L (98-107); Estimated GFR 82; Globulin 3.4 g/dL (2.4-3.5); Glucose 107 mg/dL (80-115); Potassium 4.3 mmol/L (3.5-5.1); Sodium 144 mmol/L (136-145)
[2022-08-19 15:36] LABS: CKMB 1.4 ng/mL (0-6.6)
[2022-08-19 15:40] LABS: SARS-CoV-2 NAA Rapid Test Not Detected (NotDetected)
[2022-08-19 16:59] LABS: Troponin I 0.146 ng/mL (< 0.028)
[2022-08-19] MEDS ORDERED: Aspirin 325 MG TAB ONE (19:20)
[2022-08-19] MEDS ORDERED: Melatonin 3 MG TAB PER TUBE PRN (19:36)
[2022-08-19 22:50] VITALS: BMI 25.9
[2022-08-19] MEDS ORDERED: Sodium Chloride 0.9% 1,000 ML IV SCH (23:30)
[2022-08-19] MEDS ORDERED: Aspirin Chewable 81 MG TAB PER TUBE SCH (23:30)
[2022-08-19] MEDS ORDERED: Saccharomyces boulardii 250 MG CAP PER TUBE SCH (23:45)
[2022-08-19] MEDS ORDERED: levETIRAcetam 500 mg/5 ml Oral Solution PER TUBE SCH (23:45)
[2022-08-19 23:48] LABS: Troponin I 0.265 ng/mL (< 0.028)
[2022-08-20] MEDS ORDERED: Ipratropium Bromide 2.5 ml Neb NEB PRN (01:00)
[2022-08-20] MEDS ORDERED: Hyoscyamine SL 0.125 MG TAB PER TUBE SCH (01:15)
[2022-08-20 06:04] LABS: PTT 29.6 sec (22.0-33.0)
[2022-08-20 06:05] LABS: #Eosinphils 0.2 10x3/uL (0.0-0.5); #Monocytes 0.5 10x3/uL (0.0-1.1); #Neutrophils 4.3 10x3/uL (1.5-8.4); %Basophils 0.4 % (0.0-2.0); %Eosinophils 2.7 % (0.0-6.0); %Lymphocytes 28.9 % (18.0-47.0); %Monocytes 6.8 % (0.0-10.0); %Neutrophils 61.1 % (40.0-75.0); Hemoglobin 12.8 g/dL (12.0-15.5); Mean Corpuscular HGB CONC 31.5 g/dL (32.0-36.0); Mean Corpuscular Hemoglobin 28.6 pg (27.0-33.0); Mean Corpuscular Volume 90.8 fl (81.6-98.3); Mean Platelet Volume 12.6 fl (7.4-10.4); Platelet Count 132 10x3/uL (150-450); Red Blood Cell (RBC) Count 4.47 10x6/uL (3.90-5.03)
[2022-08-20 06:11] LABS: Anion Gap 14 mmol/L (10-20); BUN (Urea Nitrogen) 19 mg/dL (9.8-20.1); Calc. Creatinine Clearance 85 mL/min (70-130); Calcium 9.7 mg/dL (7.8-10.44); Carbon Dioxide 26 mmol/L (23-31); Chloride 107 mmol/L (98-107); Estimated GFR 91; Glucose 85 mg/dL (80-115); Sodium 143 mmol/L (136-145)
[2022-08-20] MEDS ORDERED: Sertraline 25 MG TAB PER TUBE SCH (09:00)
[2022-08-20] MEDS ORDERED: Lansoprazole 3 MG/ML ORAL SUSPENSION PER TUBE SCH (09:00)
[2022-08-20] MEDS ORDERED: Multivits W-Minerals Liquid 15 ML LIQ PER TUBE SCH (09:00)
[2022-08-20] MEDS ORDERED: Aspirin Chewable 81 MG TAB PER TUBE SCH (09:00)
[2022-08-20] MEDS ORDERED: levETIRAcetam 500 mg/5 ml Oral Solution PER TUBE SCH (09:00)
[2022-08-20] MEDS ORDERED: Polyethylene Glycol 3350 17 GM Packet PER TUBE SCH (09:00)
[2022-08-20] MEDS: Saccharomyces boulardii 250 MG CAP PER TUBE SCH ×2 (09:44→13:54)
[2022-08-20] MEDS: Hyoscyamine SL 0.125 MG TAB PER TUBE SCH ×3 (09:46→17:37)
[2022-08-20 16:42] VITALS: BP 148/76; TEMP 96.9
== END 2022-08-20 20:25 ==
LOC: CSHERS 14:00 → CSHERHOLD 22:46 → CSHTELE 08-20 00:55
PROVIDERS: ADMIT Family Medicine; ATTEND Family Medicine
DX: I21.4 Non-ST elevation (NSTEMI) myocardial infarction (principal); I62.9 Nontraumatic intracranial hemorrhage, unspecified; J96.01 Acute respiratory failure with hypoxia; R77.8 Other specified abnormalities of plasma proteins; I69.320 Aphasia following cerebral infarction; G40.909 Epilepsy, unspecified, not intractable, without status epilepticus; I10 Essential (primary) hypertension; E78.5 Hyperlipidemia, unspecified; K21.9 Gastro-esophageal reflux disease without esophagitis; Z20.822 Contact with and (suspected) exposure to COVID-19; Z79.82 Long term (current) use of aspirin; Z79.899 Other long term (current) drug therapy
CPT/HCPCS: 0240U; 71045; 80048; 80053; 82553; 83735; 83880; 84484 ×2; 85025 ×2; 85610; 85730; 93005 ×2; 94760; 96372; 99285; G0378 ×2; 36415; 93010; J1650; J7050

== ENCOUNTER 2022-08-21 08:35 | Emergency (ER) | payer OTHER, MEDICAID ==
[2022-08-21] MEDS ORDERED: levETIRAcetam 500 MG/5 ML VIAL ONE (08:45)
[2022-08-21] MEDS ORDERED: Lorazepam 2 MG/ML VIAL ONE (08:45)
[2022-08-21] MEDS ORDERED: Rocuronium Bromide 10 MG/ML (10ML VIAL) ONE (08:56)
[2022-08-21 09:13] LABS: #Eosinphils 0.3 10x3/uL (0.0-0.5); #Monocytes 0.4 10x3/uL (0.0-1.1); #Neutrophils 4.7 10x3/uL (1.5-8.4); %Basophils 0.4 % (0.0-2.0); %Eosinophils 3.5 % (0.0-6.0); %Lymphocytes 25.3 % (18.0-47.0); %Monocytes 5.1 % (0.0-10.0); %Neutrophils 65.7 % (40.0-75.0); Hemoglobin 13.9 g/dL (12.0-15.5); Mean Corpuscular HGB CONC 31.9 g/dL (32.0-36.0); Mean Corpuscular Hemoglobin 28.8 pg (27.0-33.0); Mean Corpuscular Volume 90.3 fl (81.6-98.3); Mean Platelet Volume 12.8 fl (7.4-10.4); Platelet Count 178 10x3/uL (150-450); RBC Distribution Width 14.2 % (11.5-14.5); Red Blood Cell (RBC) Count 4.83 10x6/uL (3.90-5.03); White Blood Cell (WBC) Count 7.1 10x3/uL (3.5-10.5)
[2022-08-21 09:18] LABS: PTT 23.8 sec (22.0-33.0); Prothrombin Time 10.6 sec (9.5-12.1)
[2022-08-21] MEDS ORDERED: Fentanyl 100 MCG/2 ML VIAL ONE (09:18)
[2022-08-21 09:22] LABS: ALT (SGPT) 16 U/L (8-55); AST (SGOT) 27 U/L (5-34); Albumin 3.8 g/dL (3.4-4.8); Alkaline Phosphatase 139 U/L (40-110); Anion Gap 13 mmol/L (10-20); BUN (Urea Nitrogen) 22 mg/dL (9.8-20.1); Bilirubin, Total 0.3 mg/dL (0.2-1.2); Calc. Creatinine Clearance 0 mL/min (70-130); Calcium 9.4 mg/dL (7.8-10.44); Carbon Dioxide 25 mmol/L (23-31); Chloride 104 mmol/L (98-107); Estimated GFR 84; Globulin 4.2 g/dL (2.4-3.5); Glucose 96 mg/dL (80-115); Magnesium 1.9 mg/dL (1.6-2.6); Potassium 4.3 mmol/L (3.5-5.1); Sodium 138 mmol/L (136-145)
[2022-08-21] MEDS ORDERED: Propofol 1,000 MG/100 ML VIAL IV ONE (09:32)
[2022-08-21 09:41] LABS: CKMB 1.4 ng/mL (0-6.6)
[2022-08-21 09:48] LABS: Actual Bicarbonate (HCO3a) 25.7 mEq/L (22-28); Base Excess (BEa) 1.5 mEq/L (-2.0 to +3.0); CO2 Tension 38.9 mmHg (35.0-45.0); Calcium, Ionized (arterial) 1.28 mmol/L (1.12-1.30); Carboxyhemoglobin (COHb) 0.6 gm% (0.0-3.0); O2 Tension (PaO2), arterial 169.9 mmHg (> 70.0); Potassium - ABG Lab 3.7 mmol/L (3.70-5.30); Puncture Site LRA; pH, Arterial 7.44 (7.35-7.45)
[2022-08-21 09:54] LABS: ALV-art Gradient 137.975 mmHg (0-20)
[2022-08-21 11:01] LABS: Bilirubin Neg (Negative); Blood, Urine 25 (Negative); Clarity Clear (Clear); Glucose, Urine (Dipstick) Normal (Negative); Ketone, Urine Negative (Negative); Leukocyte Negative (Negative); Nitrite Negative (Negative); Protein, Urine (Dipstick) 500 mg/dl (Neg-Trace); Specific Gravity, Urine 1.015 (1.005-1.030); Urobilinogen Normal mg/dL (Less than 2)
[2022-08-21 11:10] LABS: Bacteria/HPF Rare-Few HPF (None Seen); RBC/HPF 0-3 HPF (0-3); Renal Epithelial 0-3 HPF (None Seen); Squamous Epithelial 0-3 HPF (0-3); WBC/HPF 0-3 HPF (0-3)
== END 2022-08-21 11:47 | disposition short-term general hospital (02) ==
LOC: CSHERS 08:35
DX: G40.801 Other epilepsy, not intractable, with status epilepticus (principal); R77.8 Other specified abnormalities of plasma proteins; I10 Essential (primary) hypertension; E78.5 Hyperlipidemia, unspecified; K21.9 Gastro-esophageal reflux disease without esophagitis; Z86.73 Personal history of transient ischemic attack (TIA), and cerebral infarction without residual deficits
CPT/HCPCS: 31500 ×2; 36600; 51702; 70450; 71045; 82553; 82805; 83605; 83735; 84484; 85610; 85730; 87040; 87086; 93005; 94002; 94760; 96365; 96375; 96376; 99285; J1953; 80053; 81003; 81015; 84443; 85025; J2060; J2704; J3010

== ENCOUNTER 2023-03-05 06:35 | Emergency (ER) | payer OTHER, MEDICAID | END 2023-03-05 07:10 | disposition home or self-care (01) | LOC: CSHERS 06:35 | DX: K94.23 Gastrostomy malfunction (principal); K21.9 Gastro-esophageal reflux disease without esophagitis; I10 Essential (primary) hypertension; Z86.73 Personal history of transient ischemic attack (TIA), and cerebral infarction without residual deficits; E78.5 Hyperlipidemia, unspecified; G40.909 Epilepsy, unspecified, not intractable, without status epilepticus | CPT/HCPCS: 43762; 74018 ==

== ENCOUNTER 2023-03-14 03:34 | Emergency (ER) | payer OTHER | END 2023-03-14 09:17 | LOC: CSHERS 03:34 | DX: K94.23 Gastrostomy malfunction (principal); K21.9 Gastro-esophageal reflux disease without esophagitis; G40.909 Epilepsy, unspecified, not intractable, without status epilepticus; E78.5 Hyperlipidemia, unspecified; I10 Essential (primary) hypertension; Z86.73 Personal history of transient ischemic attack (TIA), and cerebral infarction without residual deficits; Z79.899 Other long term (current) drug therapy | CPT/HCPCS: 43762; 74018 ==

== ENCOUNTER 2023-03-28 15:26 | Emergency (ER) | payer OTHER, MEDICAID ==
[2023-03-28] MEDS ORDERED: GASTROGRAFIN 30 ML BOT ONE (15:42)
== END 2023-03-28 16:15 | disposition home or self-care (01) ==
LOC: CSHERS 15:26
DX: K94.23 Gastrostomy malfunction (principal); I10 Essential (primary) hypertension; E78.5 Hyperlipidemia, unspecified; Z86.73 Personal history of transient ischemic attack (TIA), and cerebral infarction without residual deficits
CPT/HCPCS: 43753; 74018; Q9963

== ENCOUNTER 2023-04-16 09:22 | Emergency (ER) | payer OTHER | END 2023-04-16 10:26 | LOC: CSHERS 09:22 | DX: K94.23 Gastrostomy malfunction (principal); I10 Essential (primary) hypertension | CPT/HCPCS: 43762; 74018 ==